=== PATIENT | female | born 1995 | race Caucasian/White ===

== ENCOUNTER 2016-09-04 10:55 | Emergency (ER) | payer BC ==
[~2016-09-04] VITALS: Ht 154.9 cm; Wt 70.5 kg
[2016-09-04 10:57] VITALS: TEMP 36.7; Ht 154.9 cm; Wt 70.5 kg
[2016-09-04] MEDS ORDERED: LORAZEPAM 0.5 MG TAB SL ONE (11:15)
[2016-09-04 11:26] LABS: BASO % 0.2 %; BASO ABS # 0.01 K/uL (0-0.2); COMPLETE YES; EOS % 0.2 %; HEMATOCRIT 40.5 % (37-47); IG% 0.2 %; LYMPH % 21.5 %; LYMPH ABS # 1.27 K/uL (1.2-3.4); MEAN CELL VOLUME 90.8 fL (80-100); MEAN CORPUSCULAR HEMOGLOBIN 31.8 pg (25-34); MEAN CORPUSCULAR HGB CONC 35.1 g/dl (32-36); MEAN PLATELET VOLUME 9.7 fL (7.4-10.4); MONO % 7.1 %; NEUT % 70.8 %; PLATELET COUNT 244 K/uL (130-400); RED BLOOD COUNT 4.46 M/uL (4.2-5.4); WHITE BLOOD COUNT 5.91 K/uL (4.8-10.8)
--- NOTE | 2016-09-04 11:27 | EMERGENCY ROOM VISIT NOTE ---
History Report prepared by Filomena: Jina Elias Under the Supervision of: Dr. Cristina Waters D.O. First contact with patient: 11:06 Chief Complaint: TACHYCARDIA Stated Complaint: PANIC ATTACK, HIGH HEART RATE History of Present Illness The patient is a 21 year old female who presents to the Emergency Room with complaints of a sudden panic attack that occurred this morning prior to arrival. The patient states that this morning she noticed that her heart began racing and developed a knot in her throat. She states that she was feeling very anxious and had difficulty breathing. The patient states that she had a similar event occur a week and a half ago. She states that she went to [place] today and was sent to the emergency department for further evaluation due to her heart rate. The patient states that she does have a lot of added stress, but denies feeling the added stress. She denies any active medical problems. She notes minimal chest wall pain today. The patient denies any abdominal pain. She denies any recent travel.No BCP use The patient reports normal sleeping and eating. She denies any chance of dehydration. The patient denies any caffeine use. . The patient denies any tobacco or alcohol use. The patient notes a family history of hypertension. No family hx of heart disease or PE Source of History: patient Onset: this morning prior to arrival Position: other (global) Quality: other (panic attack) Timing: other (sudden) Modifying Factors (Worsening): other (increased stress) Associated Symptoms: + SOB (difficulty breathing) Note: ASsociated Symptoms: heart racing, knot in throat, feeling anxious Review of Systems See HPI for pertinent positives & negatives. A total of 10 systems reviewed and were otherwise negative. Past Medical & Surgical Medical Problems: (1) Cyst - pilonidal (2) pilonidal resectionand marsupialization Surgical Problems: (1) [place] teeth extracted Family History Cancer Diabetes mellitus Hypertension Kidney disease Kidney stones Social History Smoking Status: Never Smoker Alcohol Use: none Drug Use: none Marital Status: single Housing Status: lives with family Occupation Status: employed, student Current/Historical Medications Scheduled PRN Lorazepam (Ativan), 0.5 MG SL Q6H PRN for Anxiety/Agitation Allergies Coded Allergies: Penicillins (Unverified Allergy, Mild, 09/04/16) Ciprofloxacin (Verified Allergy, Unknown, RASH, 09/04/16) Kiwi (Verified Allergy, Unknown, Itchiness, 09/04/16) Sulfamethoxazole w/Trimethoprim (Verified Allergy, Unknown, RASH, 09/04/16) Head to toe rash after day 9 of med Physical Exam Vital Signs Date Time Temp Pulse Resp B/P Pulse Ox O2 Delivery O2 Flow Rate FiO2 09/04/16 15:05 103 18 112/66 99 09/04/16 14:16 120 20 125/73 99 Room Air 09/04/16 12:22 128 22 130/68 99 Room Air 09/04/16 11:33 126 09/04/16 11:19 100 Room Air 09/04/16 10:57 36.7 167 20 150/89 98 Room Air Physical Exam GENERAL: The patient is a anxious appearing 21 year old female in mild distress. VITALS: Afebrile, hypertensive, tachycardic, normal pulse oximetry on room air. THROAT: No pharyngeal injection, exudates, or tonsillar hypertrophy. Airway is patent. NECK: Supple, nontender, no lymphadenopathy or nuchal rigidity. THORAX : Symmetrical and nontender to palpation without deformity or palpable crepitus. LUNGS : Clear without wheezing, rhonchi, or rales HEART: Tachycardic rate and regular rhythm without murmur, ABDOMEN: Soft and nontender without guarding, rigidity, or rebound tenderness. Bowel sounds are present in all 4 quadrants. There are no palpable masses organomegaly. No CVA tenderness. Femoral pulses are symmetrical EXTREMITIES : Without deformity or point tenderness. There are no palpable cords, edema, or erythema.. NEUROLOGIC: Intact without focal deficits Medical Decision & Procedures ER Provider Diagnostic Interpretation: X-ray results as stated below per interpretation by me and the radiologist: CHEST ONE VIEW PORTABLE HISTORY: tachycardia COMPARISON: None. FINDINGS: The lungs are clear. Cardiac silhouette is normal in size. No pleural effusions. No pneumothorax. IMPRESSION: No acute process. Electronically signed by: Ehsan Shepard M.D. 09/04/2016 11:31 AM Dictated Date/Time: 09/04/2016 11:30 AM Laboratory Results 09/04/16 11:15 Red Blood Count 4.46, Mean Corpuscular Volume 90.8, Mean Corpuscular Hemoglobin 31.8, Mean Corpuscular Hemoglobin Concent 35.1, Mean Platelet Volume 9.7, Neutrophils (%) (Auto) 70.8, Lymphocytes (%) (Auto) 21.5, Monocytes (%) (Auto) 7.1, Eosinophils (%) (Auto) 0.2, Basophils (%) (Auto) 0.2, Neutrophils # (Auto) 4.19, Lymphocytes # (Auto) 1.27, Monocytes # (Auto) 0.42, Eosinophils # (Auto) 0.01, Basophils # (Auto) 0.01 09/04/16 11:15 Test 09/04/16 11:15 White Blood Count 5.91 K/uL (4.8-10.8) Red Blood Count 4.46 M/uL (4.2-5.4) Hemoglobin 14.2 g/dL (12.0-16.0) Hematocrit 40.5 % (37-47) Mean Corpuscular Volume 90.8 fL (80-100) Mean Corpuscular Hemoglobin 31.8 pg (25-34) Mean Corpuscular Hemoglobin Concent 35.1 g/dl (32-36) Platelet Count 244 K/uL (130-400) Mean Platelet Volume 9.7 fL (7.4-10.4) Neutrophils (%) (Auto) 70.8 % Lymphocytes (%) (Auto) 21.5 % Monocytes (%) (Auto) 7.1 % Eosinophils (%) (Auto) 0.2 % Basophils (%) (Auto) 0.2 % Neutrophils # (Auto) 4.19 K/uL (1.4-6.5) Lymphocytes # (Auto) 1.27 K/uL (1.2-3.4) Monocytes # (Auto) 0.42 K/uL (0.11-0.59) Eosinophils # (Auto) 0.01 K/uL (0-0.5) Basophils # (Auto) 0.01 K/uL (0-0.2) RDW Standard Deviation 41.1 fL (36.4-46.3) RDW Coefficient of Variation 12.4 % (11.5-14.5) Immature Granulocyte % (Auto) 0.2 % Immature Granulocyte # (Auto) 0.01 K/uL (0.00-0.02) Anion Gap 10.0 mmol/L (3-11) Est Creatinine Clear Calc Drug Dose 88.8 ml/min Estimated GFR () 105.9 Estimated GFR (Non- 91.4 BUN/Creatinine Ratio 14.6 (10-20) Calcium Level 9.4 mg/dl (8.5-10.1) Magnesium Level 2.0 mg/dl (1.8-2.4) Troponin I < 0.015 ng/ml (0-0.045) Thyroid Stimulating Hormone (TSH) 1.950 uIu/ml (0.300-4.500) Laboratory studies as stated above per my review. Medications Administered Medications (Trade) Dose Ordered Sig/Andra Route Start Time Stop Time Status Last Admin Dose Admin Lorazepam (Ativan Tab) 0.5 mg NOW ONCE SL 09/04/16 11:15 09/04/16 11:17 DC 09/04/16 11:43 0.5 MG Potassium Chloride (Klor-Con M10) 20 meq NOW STAT PO 09/04/16 12:56 09/04/16 12:57 DC 09/04/16 13:10 20 MEQ Lorazepam 0.5 mg 0.5 mg NOW ONCE IV 09/04/16 13:00 09/04/16 13:01 DC 09/04/16 13:10 0.5 MG Sodium Chloride (Nss 1000ml) 1,000 ml @ 999 mls/hr Q1H1M STAT IV 09/04/16 14:03 09/04/16 15:03 DC 09/04/16 14:15 999 MLS/HR ECG Indication: tachycardia Rate (beats per minute): 165 Rhythm: sinus tachycardia Findings: nonspecific-ST abn, other (no acute ST elevations) Comparison ECG Date: no prior available ED Course 1109: Past medical records reviewed. The patient was evaluated in room C8. A complete history and physical examination was performed. She was placed on continuous telemetry and hemodynamic monitoring and remained hemodynamically stable. On examination she appeared anxious and was tachycardic. She initially was treated with sublingual Ativan but continued to be quite anxious and was medicated with an additional 0.5 mg of IV Ativan with improvement of her tachycardia and anxiety. She underwent the above diagnostic workup. Twelve-lead ECG showed a sinus tachycardia without acute changes. A chest x-ray did not show any acute findings; no evidence of pneumonia or heart failure. On CBC she is not anemic. White count is normal. Her potassium is low at 3.4. Glucose is 110. Other electrolytes are normal. Magnesium is normal BUN and Creatinine are normal. TSH is normal and not suggestive of thyroid disease. Troponin is normal and not suggestive of cardiac ischemia. The patient was medicated with 20 mEq of potassium. At this time her symptoms are felt to be secondary to anxiety. She is not felt to have an infection, Acute Coronary syndrome, PE, or significant arrhythmia. She has no evidence of thyroid disease or significant electrolyte abnormality. The patient is being discharged home with instructions on activity and symptomatic care. She's been provided a prescription for a limited number of Ativan to use as needed. She should have close outpatient follow-up with her personal physician for recheck. Return if worsening symptoms or concerns. Patient is comfortable with this treatment plan. 1115: Ordered Ativan Tab 0.5 mg SL. 1149: I reevaluated the patient and she is feeling calmer. 1256: Ordered Potassium Chloride 20 meq PO. 1300: I reevaluated the patient and she is still anxious. Ordered Ativan Inj 0.5 mg IV. 1403: I reevaluated the patient and she is resting comfortably. Ordered Sodium Chloride 1000 ml @ 999 mls/hr IV. 1446: I reevaluated the patient and she is resting comfortably. I discussed the exam findings with her and I discussed the treatment plan. She verbalized complete understanding and agreement. She is ready to go home. Medical Decision EMR, nurse's notes, diagnostic studies personally reviewed Differential diagnosis-see above The chart was completed utilizing [employer] Speech Voice Recognition Software. Grammatical errors, random word insertions, pronoun errors, and incomplete sentences are an occasional consequence of this system due to software limitations, ambient noise, and hardware issues. Any formal questions or concerns about the content, text, or information contained within the body of this dictation should be directly addressed to the physician for clarification. Impression Primary Impression: Anxiety Additional Impression: Tachycardia Scribe Attestation The scribe's documentation has been prepared under my direction and personally reviewed by me in its entirety. I confirm that the note above accurately reflects all work, treatment, procedures, and medical decision making performed by me. Departure Information Dispostion Home / Self-Care Prescriptions Lorazepam (ATIVAN) 0.5 Mg Tab 0.5 MG SL Q6H Y for Anxiety/Agitation, #4 TAB Prov: Cristina Waters D.OPura 09/04/16 Referrals Jv Sanches JrD.O. (PCP) Forms HOME CARE DOCUMENTATION FORM, IMPORTANT VISIT INFORMATION, WORK / SCHOOL INSTRUCTIONS Patient Instructions Anxiety Body Response, My [facility] [place] [employer] Additional Instructions Rest, keep well-hydrated Avoid stimulants 1 Ativan, dissolve on your tongue every 6 hours as needed for anxiety Follow-up with your family doctor for recheck Return if persistent tachycardia, worsening symptoms, chest pain, problems or concerns Problem Qualifiers
--- NOTE | 2016-09-04 11:32 | DIAGNOSTIC IMAGING REPORT ---
CHEST ONE VIEW PORTABLE HISTORY: tachycardia COMPARISON: None. FINDINGS: The lungs are clear. Cardiac silhouette is normal in size. No pleural effusions. No pneumothorax. IMPRESSION: No acute process. Electronically signed by: Ehsan Shepard M.D. 09/04/2016 11:31 AM Dictated Date/Time: 09/04/2016 11:30 AM
[2016-09-04 11:40] LABS: BUN/CREATININE RATIO 14.6 (10-20); CALCIUM 9.4 mg/dl (8.5-10.1); CREATININE 0.9 mg/dl (0.60-1.20); POTASSIUM 3.4 mmol/L (3.5-5.1)
[2016-09-04] MEDS ORDERED: POTASSIUM CHLORIDE 10 MEQ TABCR PO STA (12:56)
[2016-09-04] MEDS ORDERED: LORAZEPAM 2 MG/ML 1 ML VIAL IV ONE (13:00)
[2016-09-04] MEDS ORDERED: SODIUM CHLORIDE 0.9% 1000ML 1,000 ML IV STA (14:03)
[2016-09-04] MEDS ORDERED: LORA-741 SL (14:44)
[2016-09-04 15:05] VITALS: BP 112/66; PULSE 103; O2SAT 99
== END 2016-09-04 15:07 | disposition home or self-care (01) ==
LOC: C.EDB 10:57 → C.EDC 15:07
DX: F41.9 Anxiety disorder, unspecified (principal); R00.0 Tachycardia, unspecified; Z84.1 Family history of disorders of kidney and ureter; Z83.3 Family history of diabetes mellitus

== ENCOUNTER → 2017-03-21 | Outpatient (CLI) | payer BC | END | disposition home or self-care (01) | LOC: C.PAPS 11:48 | PROVIDERS: ATTEND Physician Assistant | DX: Z01.419 Encounter for gynecological examination (general) (routine) without abnormal findings (principal) ==

== ENCOUNTER 2017-10-19 19:05 | Emergency (ER) | payer BC ==
[~2017-10-19] VITALS: Ht 154.9 cm; Wt 73.3 kg
[2017-10-19 19:08] VITALS: TEMP 36.6; Ht 154.9 cm; Wt 73.3 kg
[2017-10-19] MEDS ORDERED: ONDANSETRON INJ 2 MG/ML 2 ML VIAL IV STA (19:22)
[2017-10-19] MEDS ORDERED: SODIUM CHLORIDE 0.9% 1000ML 1,000 ML IV STA (19:22)
[2017-10-19] MEDS ORDERED: LACT1CAP6 PO (19:38)
[2017-10-19] MEDS ORDERED: ESCI1TAB9 PO (19:38)
[2017-10-19 19:52] LABS: EOS % 2.3 %; EOS ABS # 0.11 K/uL (0-0.5); HEMATOCRIT 41.7 % (37-47); HEMOGLOBIN 14.7 g/dL (12.0-16.0); IG# 0.01 K/uL (0.00-0.02); LYMPH % 7.2 %; LYMPH ABS # 0.34 K/uL (1.2-3.4); MEAN CELL VOLUME 90.3 fL (80-100); MEAN CORPUSCULAR HEMOGLOBIN 31.8 pg (25-34); MEAN CORPUSCULAR HGB CONC 35.3 g/dl (32-36); MEAN PLATELET VOLUME 9.6 fL (7.4-10.4); MONO % 10.8 %; MONO ABS # 0.51 K/uL (0.11-0.59); NEUT % 79.5 %; NEUT ABS # 3.77 K/uL (1.4-6.5); PLATELET COUNT 212 K/uL (130-400); RED CELL DISTRIBUTION WIDTH CV 12.3 % (11.5-14.5); RED CELL DISTRIBUTION WIDTH SD 40.8 fL (36.4-46.3); WHITE BLOOD COUNT 4.74 K/uL (4.8-10.8)
[2017-10-19 20:06] LABS: CALCIUM 8.4 mg/dl (8.5-10.1); CREATININE 0.79 mg/dl (0.60-1.20); POTASSIUM 3.8 mmol/L (3.5-5.1)
[2017-10-19 20:22] VITALS: BP 105/58; PULSE 60; O2SAT 100
[2017-10-19] MEDS ORDERED: ONDA4TAB10 SL (20:22)
[2017-10-19] MEDS ORDERED: ONDANSETRON HOME PACK 4MG OD TAB PO ONE (20:30)
--- NOTE | 2017-10-20 01:28 | EMERGENCY ROOM VISIT NOTE ---
History Report prepared by Filomena: Pro Napier Under the Supervision of: Dr. Alex Nj M.D. First contact with patient: 19:12 Chief Complaint: DIARRHEA Stated Complaint: DIARRHEA, VOMITING, NAUSEA, STAOMACH CRAMPING History of Present Illness The patient is a 22 year old female who presents to the Emergency Room with complaints of vomiting and persistent, severe watery diarrhea beginning this morning. 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 The patient denies seeing blood in her diarrhea. She states that she consumed [place] lettuce 4 days ago, but notes that she was told that the lettuce was not part of the contaminated E. Coli batch from [facility]. She denies any foreign travel, recent antibiotic use, or exposure to sick individuals. Source of History: patient Onset: Earlier Today Position: abdomen Symptom Intensity: severe Timing: other (Persistent ) Modifying Factors (Worsening): other (None ) Modifying Factors (Relieving): other (None ) Associated Symptoms: + nausea, + vomiting Note: Denies: Bloody diarrhea. Review of Systems See HPI for pertinent positives & negatives. A total of 10 systems reviewed and were otherwise negative. Past Medical & Surgical Medical Problems: (1) Cyst - pilonidal (2) pilonidal resectionand marsupialization Surgical Problems: (1) [place] teeth extracted Family History Cancer Diabetes mellitus Hypertension Kidney disease Kidney stones Social History Smoking Status: Never Smoker Alcohol Use: none Drug Use: none Marital Status: single Housing Status: lives with family Occupation Status: employed, student Current/Historical Medications Scheduled Escitalopram Oxalate (Lexapro), 10 MG PO DAILY Lactobacillus (Probiotic), 1 CAP PO DAILY Ondasetron Odt (Zofran Odt), 4 MG SL Q6H Allergies Coded Allergies: Ciprofloxacin (Verified Allergy, Severe, HIVES, 10/19/17) Penicillins (Verified Allergy, Severe, HIVES, 10/19/17) Sulfamethoxazole w/Trimethoprim (Verified Allergy, Severe, HIVES, 10/19/17) Kiwi (Verified Allergy, Intermediate, ITCHY THROAT, WATERY EYES, 10/19/17) Physical Exam Vital Signs Date Time Temp Pulse Resp B/P (MAP) Pulse Ox O2 Delivery O2 Flow Rate FiO2 10/19/17 20:22 60 18 105/58 100 Room Air 10/19/17 19:08 36.6 120 16 147/69 100 Room Air Physical Exam Constitutional: Vital signs reviewed. Eyes: Pupils are equal round reactive to light. Conjunctiva are noninjected. ENT: Pharynx is clear without erythema or exudate. Mucous membranes are dry. Neck supple without meningeal signs. Respiratory: Clear to auscultation bilaterally. Breath sounds are equal bilaterally. Cardiovascular: Regular rate and rhythm. No rubs or gallops. GI: Soft, nondistended and nontender. Bowel sounds are present. Musculoskeletal: No peripheral edema. No lower extremity tenderness. Integumentary: No cyanosis. Neurological: The patient is awake and alert. No focal deficits. Psychiatric: Normal affect. Medical Decision & Procedures Laboratory Results 10/19/17 19:32 Red Blood Count 4.62, Mean Corpuscular Volume 90.3, Mean Corpuscular Hemoglobin 31.8, Mean Corpuscular Hemoglobin Concent 35.3, Mean Platelet Volume 9.6, Neutrophils (%) (Auto) 79.5, Lymphocytes (%) (Auto) 7.2, Monocytes (%) (Auto) 10.8, Eosinophils (%) (Auto) 2.3, Basophils (%) (Auto) 0.0, Neutrophils # (Auto ) 3.77, Lymphocytes # (Auto) 0.34, Monocytes # (Auto) 0.51, Eosinophils # (Auto ) 0.11, Basophils # (Auto) 0.00 10/19/17 19:32 Test 10/19/17 19:32 White Blood Count 4.74 K/uL (4.8-10.8) Red Blood Count 4.62 M/uL (4.2-5.4) Hemoglobin 14.7 g/dL (12.0-16.0) Hematocrit 41.7 % (37-47) Mean Corpuscular Volume 90.3 fL (80-100) Mean Corpuscular Hemoglobin 31.8 pg (25-34) Mean Corpuscular Hemoglobin Concent 35.3 g/dl (32-36) Platelet Count 212 K/uL (130-400) Mean Platelet Volume 9.6 fL (7.4-10.4) Neutrophils (%) (Auto) 79.5 % Lymphocytes (%) (Auto) 7.2 % Monocytes (%) (Auto) 10.8 % Eosinophils (%) (Auto) 2.3 % Basophils (%) (Auto) 0.0 % Neutrophils # (Auto) 3.77 K/uL (1.4-6.5) Lymphocytes # (Auto) 0.34 K/uL (1.2-3.4) Monocytes # (Auto) 0.51 K/uL (0.11-0.59) Eosinophils # (Auto) 0.11 K/uL (0-0.5) Basophils # (Auto) 0.00 K/uL (0-0.2) RDW Standard Deviation 40.8 fL (36.4-46.3) RDW Coefficient of Variation 12.3 % (11.5-14.5) Immature Granulocyte % (Auto) 0.2 % Immature Granulocyte # (Auto) 0.01 K/uL (0.00-0.02) Anion Gap 9.0 mmol/L (3-11) Est Creatinine Clear Calc Drug Dose 102.2 ml/min Estimated GFR () 123.2 Estimated GFR (Non- 106.3 BUN/Creatinine Ratio 14.9 (10-20) Calcium Level 8.4 mg/dl (8.5-10.1) Date/Time Source Procedure Growth Status 10/19/17 19:30 Stool C.difficile Toxin B Gene (PCR) - Final No C. difficile toxin B gene detected Complete Laboratory results as reviewed by me. Medications Administered Medications (Trade) Dose Ordered Sig/Andra Route Start Time Stop Time Status Last Admin Dose Admin Sodium Chloride 1,000 ml @ 999 mls/hr Q1H1M STAT IV 10/19/17 19:22 10/19/17 20:22 DC 10/19/17 19:38 999 MLS/HR Ondansetron HCl (Zofran Inj) 4 mg NOW STAT IV 10/19/17 19:22 10/19/17 19:23 DC 10/19/17 19:38 4 MG Ondansetron HCl (ZOFRAN ODT 4MG Home Pack) 1 homepack UD ONCE PO 10/19/17 20:30 10/19/17 20:31 DC 10/19/17 20:29 1 HOMEPACK ED Course 1911: The patient was evaluated in room C9. A complete history and physical exam was performed. 1921: Ordered Zofran Inj 4mg IV and Sodium Chloride 1000 ml @ 999 mls/hr IV. 2020: I reevaluated the patient. She states that she is feeling much better. I will call her with her C. Diff result when it returns. 2022: Upon reevaluation, the patient appeared to have improvement of her symptoms. I discussed raul's findings with her. She verbalized agreement of the treatment plan. She was discharged home. Medical Decision This is a 22-year-old female who presents with vomiting and diarrhea. Differential diagnosis includes gastroenteritis, foodborne illness, E. coli, dehydration, electrolyte abnormality. I did perform a limited focused review of portions of the patient's old chart on the electronic medical record. The patient has had no recent pertinent visits to this hospital. I did evaluate the patient as noted above. IV access was established. I did treat her with IV Zofran and normal saline IV. I did order stool cultures. C. difficile antigen testing was negative. I did order and review the patient's blood work as noted in the electronic medical record. Her lab work is unremarkable. I did reassess the patient. She is feeling much better. I did discuss the test results with the patient. She was discharged with a prescription for Zofran. She was advised to follow-up with her doctor. Medication Reconcilliation Current Medication List: was personally reviewed by me Blood Pressure Screening Patient's blood pressure: Elevated blood pressure The patient is hypertensive. Impression Primary Impression: Vomiting Additional Impression: Diarrhea Scribe Attestation The scribe's documentation has been prepared under my direct and personally reviewed by me in its entirety. I confirm that the note above accurately reflects all work, treatment, procedures, and medical decision making performed by me. Departure Information Dispostion Home / Self-Care Prescriptions Ondasetron Odt (ZOFRAN ODT) 4 Mg Tab 4 MG SL Q6H for Nausea, #6 TAB Prov: Alex Nj M.D. 10/19/17 Referrals Jv Sanches Jr,D.O. (PCP) Forms HOME CARE DOCUMENTATION FORM, IMPORTANT VISIT INFORMATION, WORK / SCHOOL INSTRUCTIONS Patient Instructions My [facility], Vomit Diarrhea Self Care Additional Instructions You have been examined and treated today on an emergency basis only. This is not a substitute for, or an effort to provide, complete comprehensive medical care. It is impossible to recognize and treat all injuries or illnesses in a single emergency department visit. It is therefore important that you follow up closely with your physician. Call as soon as possible for an appointment. Return for worsening symptoms or if you develop fever, abdominal pain, rectal bleeding or any other concerning symptoms. Problem Qualifiers Primary Impression: Vomiting Vomiting type: unspecified Vomiting Intractability: non-intractable Nausea presence: with nausea Qualified Codes: R11.2 - Nausea with vomiting, unspecified Additional Impression: Diarrhea Diarrhea type: unspecified type Qualified Codes: R19.7 - Diarrhea, unspecified
== END 2017-10-19 20:31 | disposition home or self-care (01) ==
LOC: C.EDB 19:07 → C.EDC 20:31
DX: R11.2 Nausea with vomiting, unspecified (principal); R19.7 Diarrhea, unspecified; R10.9 Unspecified abdominal pain

== ENCOUNTER 2019-11-19 05:32 | Inpatient (IN) ==
--- NOTE | 2019-11-16 13:05 | Communication Note ---
Date of Service: November 16, 2019 Travel assessment/history reviewed - low risk at this time - will be reviewed the morning of surgery. No covid prescreen test done.
--- NOTE | 2019-11-18 17:52 | History and Physical Report ---
DATE OF ADMISSION: 11/19/2019 REASON FOR ADMISSION: Scheduled primary section for breech. BRIEF HISTORY: Mary is a 24-year-old and will be admitted at 39 weeks 6 days gestational age for scheduled primary section for breech presentation. The patient's has been complicated by hypothyroidism, Rh negative and breech presentation. The patient has been previously counseled on delivery via versus reattempted ECV. The patient has previously had a failed version. The patient has opted to proceed with primary section. COURSE: The patient presented for care at approximately 7 weeks' gestational age. She has been normotensive throughout. She has had negative proteinuria and negative glucosuria. has been uncomplicated to date. OBSTETRICAL HISTORY: The patient is a G1. GYNECOLOGIC HISTORY: Noncontributory to her current admission. PAST MEDICAL HISTORY: Significant for: 1. Hypothyroidism. 2. Iron-deficiency anemia. 3. Anxiety. PAST SURGICAL HISTORY: Has been significant for wisdom tooth extraction. CURRENT MEDICATIONS: Include: 1. vitamins. 2. Synthroid. 3. Colace. 4. Iron. 5. Levothyroxine 75 mcg daily. ALLERGIES: MANY DRUG ALLERGIES, please see EMR. PHYSICAL EXAMINATION TODAY: VITAL SIGNS: Blood pressure 128/80. GENERAL: The patient is well appearing in no acute distress, alert and oriented x3. HEART: Showed regular rate and rhythm. LUNGS: Clear to auscultation bilaterally. ABDOMEN: Soft, nontender, nondistended. Fundal height was measured at 40. heart rate of 145 was noted. Fetus was noted to have continued breech presentation. EXTREMITIES: Unremarkable. ASSESSMENT AND PLAN: Mary is a 24-year-old 1, para 0, with planned primary section for breech presentation. The patient had a failed external cephalic version. 1. Fetus: Heart rate reassuring today. We will have NST prior to . 2. Delivery: We will proceed with a primary section for breech presentation. Consents were reviewed and signed in clinic today. All questions were answered to patient's satisfaction. We discussed the risks in detail and reviewed postoperative precautions. 3. Vitals: Within normal limits. We will continue to monitor. 4. hemorrhage risk considered moderate risk for planned section. We will type and screen. 5. Hypothyroidism: Continue home medications.
[2019-11-19] MEDS ORDERED: CLINDAMYCIN 900 MG in DEXTROSE 5% 50 ML IV ONE (05:41)
[2019-11-19] MEDS ORDERED: CITRIC ACID/SODIUM CITRATE 15 ML UDC PO SCH (06:00)
[2019-11-19 06:01] LABS: Basophils # (auto) 0.03 K/uL (0-0.2); Basophils % (auto) 0.2 %; Eosinophils # (auto) 0.14 K/uL (0-0.5); Eosinophils % (auto) 1.2 %; Hematocrit (blood only) 38.5 % (37-47); Hemoglobin 13.1 g/dL (12.0-16.0); Immature Granulocytes # (auto) 0.19 K/uL (0.00-0.02); Immature Granulocytes % (auto) 1.6 %; Lymphocytes # (auto) 2.25 K/uL (1.2-3.4); Lymphocytes % (auto) 18.6 %; Mean Corpuscular Volume 93.9 fL (80-100); Mean Platelet Volume 9.6 fL (7.4-10.4); Monocytes # (auto) 0.95 K/uL (0.11-0.59); Monocytes % (auto) 7.8 %; Neutrophils # (auto) 8.56 K/uL (1.4-6.5); Neutrophils % (auto) 70.6 %; Platelet Count 288 K/uL (130-400); RDW Coefficient of Variation 14.2 % (11.5-14.5); RDW Standard Deviation 48.8 fL (36.4-46.3); White Blood Count 12.12 K/uL (4.8-10.8)
[2019-11-19] MEDS ORDERED: LACTATED RINGER'S 1,000 ML IV SCH ×2 (06:43→08:45)
[2019-11-19] MEDS ORDERED: SODIUM CHLORIDE 0.9% 250 ML IV PRN (06:44)
[2019-11-19] MEDS: LEVOTHYROXINE SODIUM 75 MCG TABLET PO SCH (06:51)
--- NOTE | 2019-11-19 07:18 | Anesthesiology Consultation ---
Date of Service November 19, 2019 Assessment & Plan (1) Encounter for pre-operative examination: Chart Review Chart Review: Acceptable Risk for Surgery and Patient NOT seen in Pre Admission Testing Consults Requested none ASA ASA2 Proposed Anesthesia Anesthesia Type: Spinal Risk / Benefits Reviewed With: PT / POA / Parent / Guardian, Accepts Plan and Informed Consent Obtained History Surgery Operation Date: 11/19/19 07:30 Proposed Procedures p Section - Ever Pickens MD Height/Weight Height: 5 ft 1 in Weight: 98.43 kg Allergies Allergy/AdvReac Type Severity Reaction Status Date / Time apple Allergy Severe Swelling Verified 11/18/19 13:49 of Lip/Tongue/Throat Bactrim Allergy Severe HIVES Verified 10/19/17 19:37 Cipro Allergy Severe HIVES Verified 10/19/17 19:37 ciprofloxacin Allergy Intermediate HIVES Verified 11/18/19 13:49 kiwi Allergy Intermediate ITCHY Verified 11/18/19 13:49 THROAT, WATERY EYES Penicillins Allergy Intermediate HIVES Verified 11/18/19 13:49 sulfamethoxazole Allergy Intermediate HIVES Verified 11/18/19 13:49 trimethoprim Allergy Intermediate HIVES Verified 11/18/19 13:49 Medications Home Medications Medication Instructions Recorded Confirmed Last Taken cetirizine 10 mg tablet 10 mg PO QAM 04/07/19 11/19/19 11/18/19 08:00 vit-iron fum-folic ac 1 tab PO DAILY 08/15/19 11/19/19 11/18/19 08:00 levothyroxine 75 mcg tablet 75 mcg PO DAILY #90 tab 09/20/19 11/19/19 11/19/19 04:30 docusate sodium [Stool Softener] 100 mg PO QAM 11/11/19 11/19/19 11/18/19 08:00 ferrous sulfate 324 mg PO QAM 11/11/19 11/19/19 11/18/19 08:00 Active Medications Generic Name Dose Route Start Last Admin Trade Name Freq PRN Reason Stop Dose Admin Lactated Ringer's 1,000 mls @ 125 mls/hr 11/19/19 06:43 11/19/19 06:02 Lr IV 12/19/19 06:42 999 mls/hr .Q8H ANSON Administration Levothyroxine Sodium 75 mcg 11/19/19 06:30 11/19/19 06:51 Synthroid PO 12/19/19 06:29 Not Given DAILYBB ANSON NPO Date Last Intake of Fluids: 11/18/19 Time Last Intake of Fluids: 21:00 Date Last Intake of Solids: 11/18/19 Time Last Intake of Solids: 20:00 Past Medical History Medical History Anxiety (Acute) Hypothyroidism Iron deficiency Seasonal allergies Temporomandibular joint disorder Exercise / Class Metabolic Activity II 4-5 Yardwork/Stairs/Walk up hill Past Family History Family History Father Diabetes Hypertension Hyperlipidemia Left nephrolithiasis Grandfather (Maternal) Cardiac disorder Grandmother (Maternal) Gallbladder disease Aunt Gallbladder disease Mother Multiple myeloma Denies family history of Colon cancer Ovarian cancer Breast cancer Past Surgical History Surgical History History of incision and drainage INCISION AND DRAINAGE OF PILONIDAL CYST;X3 History of wisdom tooth extraction Past Anesthesia History No Hx of Anesthesia Complications History of PONV No Hx of PONV Social History Smoking Status: Never smoker Do You Dip or Chew Tobacco: No Hx Alcohol Use: No Hx Substance Use: No substance use type: does not use Review of Systems Negative for chest pain or shortness of breath. Patient denies active symptoms of GERD. Patient denies history of abnormal bleeding or bleeding disorder. Patient denies active use of anticoagulants other than low dose aspirin. Patient denies numbness, tingling or weakness in lower extremities. Physical Exam Vital Signs Last Vital Signs Temp 36.9 C 11/19/19 05:46 Pulse 86 11/19/19 06:08 Resp 18 11/19/19 05:46 BP 118/81 11/19/19 06:08 Constitutional not obese (Gravid uterus) ENMT Mouth: no TMJ abnormality and oral opening not small Thyromental Distance: > or= 3.5 Finger Breadths Mallampati Class: II Neck normal visual inspection; neck extension not limited Respiratory normal respiratory effort Auscultation: lungs clear to auscultation bilaterally Cardiovascular Rate/Rhythm: regular rate and regular rhythm Heart Sounds: no murmur Neurologic moves all extremities Motor/Sensory: no sensory deficit Psychiatric Orientation: alert and oriented x 3 Testing Laboratory Results 11/19/19 05:49
--- NOTE | 2019-11-19 07:23 | History & Physical Bridge Note ---
Date of Service November 19, 2019 History & Physical Bridge Note I have examined the patient, reviewed the History & Physical and in the interval since the performance of the History & Physical I have noted the following changes of clinical significance: no changes noted
[2019-11-19] MEDS ORDERED: MoRPHine SULFATE PF 1 MG/ML 10 ML AMP/VIAL ONE (07:29)
[2019-11-19] MEDS ORDERED: fentaNYL citrate 100 MCG/2 ML VIAL ONE (07:29)
[2019-11-19] MEDS ORDERED: CEFAZOLIN 3,000 MG in DEXTROSE 5% 50 ML IV STA (07:34)
[2019-11-19] MEDS ORDERED: OXYTOCIN 10 UNITS/ML VIAL ONE ×4 (07:58→08:32)
[2019-11-19] MEDS ORDERED: KETOROLAC 30 MG/ML VIAL ONE (08:27)
[2019-11-19] MEDS ORDERED: PHENYLEPHRINE 100MCG/ML 5ML SYR ONE (08:28)
[2019-11-19] MEDS ORDERED: SENNA 8.6 MG TAB PO PRN (08:33)
[2019-11-19] MEDS ORDERED: MEPERIDINE HCL 50 MG/ML CARP IV PRN (08:33)
[2019-11-19] MEDS ORDERED: SUPERCREAM 0.870% 15 GM JAR EXT PRN (08:33)
[2019-11-19] MEDS ORDERED: KETOROLAC 30 MG/ML VIAL IV PRN ×2 (08:33→08:37)
[2019-11-19] MEDS ORDERED: BENZOCAINE 20% AER SPR 82.5 GM CAN EXT PRN (08:33)
[2019-11-19] MEDS ORDERED: HYDROCORTISONE ACETATE 25 MG SUPP PR PRN (08:33)
[2019-11-19] MEDS ORDERED: HYDROmorphone INJ 0.5 MG/0.5 ML SYR IV PRN (08:37)
[2019-11-19] MEDS ORDERED: ONDANSETRON INJ 2 MG/ML 2 ML VIAL IV PRN (08:37)
[2019-11-19] MEDS ORDERED: MoRPHine SULFATE PF 1 MG/ML 10 ML AMP/VIAL INT SPINAL ONE (08:37)
[2019-11-19] MEDS ORDERED: NALOXONE HCL 0.4 MG/1 ML VIAL/CARP IV PRN (08:37)
[2019-11-19] MEDS ORDERED: LACTATED RINGER'S 500 ML IV PRN (08:37)
[2019-11-19] MEDS ORDERED: ePHEDrine sulfate 50 MG/ML AMP IV PRN (08:37)
[2019-11-19] MEDS ORDERED: DiphenhydrAMINE HCL 50 MG/ML VIAL IV PRN (08:37)
[2019-11-19] MEDS ORDERED: NALOXONE HCL 0.08 MG in SYRINGE 1.8 ML IV PRN (08:37)
[2019-11-19] MEDS ORDERED: ACETAMINOPHEN 1000 MG/100 ML IV IV PRN (08:37)
[2019-11-19] MEDS ORDERED: NALOXONE HCL 1 MG in SODIUM CHLORIDE 0.9% 1000ML 1,000 ML IV PRN (08:37)
[2019-11-19] MEDS ORDERED: NALBUPHINE HCL INJ 10 MG/ML AMP IV PRN (08:37)
--- NOTE | 2019-11-19 08:44 | Post Operative Brief Note ---
PG Immediate Post Op with CF Date of Surgery November 19, 2019 Pre & Post Diagnosis Operation Date: 11/19/19 07:30 Pre-Op Diagnosis: Term; Breech Post-Op Diagnosis: Same; Delivery of a live male child at 0810 I identified the patient and participated in the time-out.: Yes Procedure Operation Date: 11/19/19 07:30 Actual Procedures p Section - Ever Pickens MD Surgeon Ever Pickens MD Inker And Opaquer Dr Karlos Moe Estimated Blood Loss 500 Findings Consistent with Post-Op Diagnosis Specimens Specimen Description: A. Placenta-hold B. Cord Blood Drains Gutierrez Catheter
[2019-11-19] MEDS ORDERED: DC INTRASPINAL MORPHINE SCH (08:45)
[2019-11-19] MEDS ORDERED: NO NARCOTICS OR SEDATIVES SCH (08:45)
[2019-11-19] MEDS ORDERED: SODIUM CHLORIDE 0.9% 1000ML 1,000 ML IV SCH (08:45)
--- NOTE | 2019-11-19 09:11 | Anesthesiology Progress Note ---
Date of Service November 19, 2019 Anesthesia Post Procedure Vital Signs Vital Signs: Temp Pulse Resp BP Pulse Ox 11/19/19 09:07 82 99 11/19/19 09:06 85 107/77 11/19/19 09:02 68 99 11/19/19 08:57 68 98 11/19/19 08:56 76 111/56 L 11/19/19 06:08 86 118/81 11/19/19 05:46 36.9 C 86 18 118/81 Transfer of Care Handoff Completed per policy Notes Mental Status: alert / awake / arousable and participated in evaluation Nausea / Vomiting: adequately controlled Pain: adequately controlled Airway Patency, RR, SpO2: stable & adequate BP & HR: stable & adequate Hydration State: stable & adequate Neuraxial Anesthesia: was administered and sensory block is resolving Anesthetic Complications: no major complications apparent and Pt Satisfied with anesthetic care
[2019-11-19] MEDS: OXYTOCIN 20 UNITS in LACTATED RINGER'S 1,000 ML IV SCH ×2 (12:07→20:32)
--- NOTE | 2019-11-19 15:22 | Operative Report (OR) ---
DATE OF OPERATION: 11/19/2019 PROCEDURE: Primary section. PREOPERATIVE DIAGNOSES: 1. Term at 39+ weeks gestational age. 2. Persistent breech presentation. 3. Failed external cephalic version. POSTOPERATIVE DIAGNOSES: 1. Term at 39+ weeks gestational age. 2. Persistent breech presentation. 3. Failed external cephalic version. 4. Status post procedure. SURGEON: Dr. Ever Pickens. ESTIMATED BLOOD LOSS: 500 mL. DRAINS: Gutierrez catheter. FLUIDS: Continuous lactated ringer. URINE OUTPUT: Per Gutierrez catheter. COMPLICATIONS: None. FINDINGS: There was noted to be a viable with weight pending, Apgars of 9 and 10 at 1 and 5 minutes respectively. INDICATIONS: The patient is a 24-year-old G1, P0, admitted at 39 weeks 6 days gestational age for planned primary section for persistent breech with failed ECV. Consents were reviewed and signed in clinic and the patient was scanned to document persistent breech presentation prior to proceeding to the OR. DESCRIPTION OF PROCEDURE: The patient was taken to the Operating Room after consents were ensured. Spinal anesthesia was obtained without difficulty. The patient was then prepped and draped in normal sterile fashion. Preprocedure timeout was performed. A Pfannenstiel skin incision was made with a knife. This was carried down to underlying fascia with the Bovie and blunt dissection. The fascia was nicked at the midline with a knife. The fascia was then extended laterally in each direction with pickups and Cline scissors. The superior aspect of the fascia was grasped with Kochers x2, elevated off the underlying rectus muscle using blunt dissection. The inferior aspect of the fascia was grasped with Kochers x2 and elevated off the underlying rectus muscle using blunt dissection. The midline was then entered bluntly and placed on stretch to provide adequate room for delivery. A bladder blade was inserted and a bladder flap was created in normal fashion. A low transverse uterine incision was then made with a knife and was extended laterally to provide space for delivery. The was noted to be in ingrid breech presentation and the buttocks were then brought through the hysterotomy. The internal rotation of the hips allowed for delivery of both legs. This was continued to the level of the axilla and then internal rotation of both arms allowed for delivery of the arms and shoulders. Head was then delivered without difficulty. was noted to be vigorous soon after delivery and a 30-second delayed cord clamping was initiated per the patient's request. The cord was then double clamped and cut. was handed off to the awaiting nursery staff. Cord blood was then obtained. Attention was then turned to deliver the placenta, which was delivered intact, 3-vessel cord with gentle cord traction and fundal massage. The uterus was then exteriorized. Several passes were made to remove any remaining membranes. The uterus was wrapped in wet lap and the hysterotomy was closed with 0 Vicryl continuous running locked suture. A second imbricating layer was then performed. The posterior cul-de-sac was cleaned of clots and debris. The uterus was returned to maternal abdomen and the hysterotomy was noted to be continued hemostasis. The right and left pericolic gutters were cleaned of clots and debris and the fascia and subcutaneous layers were inspected and noted to be hemostatic. The fascia was then closed with 0 Vicryl in continuous running stitch. The subcutaneous layers were reapproximated with 2-0 plain. Skin was reapproximated with a 3-0 Vicryl on a Vladimir needle. Needle, sponge and instrument counts were correct at the completion of the case with mother and stable in the immediate post delivery period. The patient received 3 grams of Ancef prior to incision. I attest to the content of the Intraoperative Record and any orders documented therein. Any exceptions are noted below. NICOLASAD
[2019-11-19] MEDS ORDERED: ACETAMINOPHEN 500 MG TAB PO PRN (19:42)
[2019-11-20] MEDS ORDERED: PROMETHAZINE HCL 25 MG in SODIUM CHLORIDE 0.9% 50 ML IV PRN (02:37)
[2019-11-20] MEDS ORDERED: ONDANSETRON INJ 2 MG/ML 2 ML VIAL IV PRN (02:37)
[2019-11-20] MEDS ORDERED: DiphenhydrAMINE HCL 50 MG/ML VIAL IV PRN (02:37)
[2019-11-20] MEDS ORDERED: OXYCODONE/ACETAMINOPHEN 5mg/325mg TAB PO PRN (02:37)
[2019-11-20] MEDS: OXYCODONE HCL IR 5 MG TAB (IMMEDIATE RELEASE) PO PRN ×5 (03:10→21:04)
--- NOTE | 2019-11-20 06:04 | Obstetrical Progress Note ---
Date of Service November 20, 2019 Assessment & Plan Admission and Anticipated Discharge Date Admission Date: November 19, 2019 24 yo G1 s/p pC/S @ 39.6 complicated by hypothyroidism and breech presentation. - POD# 1 - GBS -, Blood Type O-, baby blood type O- - Feels well today. Eating well, voiding well, ambulating well. - Pain well controlled. - Routine post operative care - After discharge will have [address] Pickens. Supervising Physician Co-Signing Physician Notes Patient seen and evaluated and agree with the above findings and plan. Doing well. Routine care Subjective Doing well this morning she is voiding, eating a regular diet without difficulty. Her bleeding is described as a, "heavy period". She is and this is going, "well". And her pain is a 1-2/10. Babies name is Denisse. She had no questions for me this morning. Review of Systems Review of Systems: Denies fever, chills, sweats Denies shortness of breath, difficulty breathing, chest pain, palpitations, chest pressure. Denies breast pain. Denies dysuria. Denies headache. Physical Exam Physical Exam: General: Alert, oriented. No acute distress. Cardiac: Regular rate and rhythm, no murmurs/rubs/gallops. Respiratory: Clear to auscultation anterior and posteriorly, no wheezes/rales/rhonchi. No increased work of breathing. Symmetrical chest rise. No respiratory distress. Abdomen: Soft, nontender, nondistended. Bowel sounds present. Uterus: Uterine fundus firm, palpable 1 cm below umbilicus. Lower Extremities: No lower extremity edema or swelling. No deep calf pain. Gillian's negative bilaterally. surgical incision intact, clean, dry. No warmth, erythema, discharge, or dehiscence. Results & Data ([facility]) Vital Signs (Past 12 Hours) Vital Signs Temp Pulse Resp BP Pulse Ox 11/20/19 03:35 36.9 C 71 18 105/70 99 11/20/19 02:25 18 97 11/20/19 01:20 16 96 11/20/19 00:35 16 96 11/19/19 23:05 36.9 C 77 18 100/56 L 97 11/19/19 22:20 18 96 11/19/19 21:25 18 96 11/19/19 20:40 18 97 05/29/20 19:35 36.8 C 64 18 96/63 L 96 11/19/19 18:50 20 100 Resident Activity Tracking Resident Involvement: Resident Care Provided Care Provided: OB Delivery
[2019-11-20] MEDS: LEVOTHYROXINE SODIUM 75 MCG TABLET PO SCH (06:14)
[2019-11-20 07:38] LABS: Basophils # (auto) 0.02 K/uL (0-0.2); Basophils % (auto) 0.1 %; Eosinophils # (auto) 0.11 K/uL (0-0.5); Eosinophils % (auto) 0.8 %; Hematocrit (blood only) 35.5 % (37-47); Hemoglobin 12.1 g/dL (12.0-16.0); Immature Granulocytes # (auto) 0.14 K/uL (0.00-0.02); Lymphocytes # (auto) 1.61 K/uL (1.2-3.4); Lymphocytes % (auto) 11.9 %; Mean Corpuscular Hemoglobin 32.2 pg (25-34); Mean Corpuscular Hgb Conc 34.1 g/dL (32-36); Mean Corpuscular Volume 94.4 fL (80-100); Mean Platelet Volume 9.7 fL (7.4-10.4); Monocytes # (auto) 0.82 K/uL (0.11-0.59); Monocytes % (auto) 6.1 %; Neutrophils # (auto) 10.85 K/uL (1.4-6.5); Neutrophils % (auto) 80.1 %; Platelet Count 280 K/uL (130-400); RDW Coefficient of Variation 14.1 % (11.5-14.5); Red Blood Count 3.76 M/uL (4.2-5.4); White Blood Count 13.55 K/uL (4.8-10.8)
[2019-11-20] MEDS: PRENATAL VITAMIN 1 TAB PO SCH (08:38)
[2019-11-20] MEDS: FERROUS SULFATE 325 MG TAB PO SCH (08:39)
[2019-11-20] MEDS: DOCUSATE SODIUM 100 MG CAP PO SCH ×2 (09:12→21:04)
[2019-11-20] MEDS: SIMETHICONE 80 MG CHEW PO PRN ×3 (09:12→21:04)
[2019-11-20] MEDS: IBUPROFEN 600 MG TAB PO PRN ×3 (12:41→21:04)
[2019-11-21] MEDS: IBUPROFEN 600 MG TAB PO PRN ×3 (01:12→11:52)
[2019-11-21] MEDS: OXYCODONE HCL IR 5 MG TAB (IMMEDIATE RELEASE) PO PRN ×3 (01:12→11:52)
[2019-11-21 06:07] LABS: Hematocrit (blood only) 31.8 % (37-47); Hemoglobin 10.9 g/dL (12.0-16.0)
[2019-11-21] MEDS: LEVOTHYROXINE SODIUM 75 MCG TABLET PO SCH (06:35)
[2019-11-21] MEDS: PRENATAL VITAMIN 1 TAB PO SCH (07:55)
[2019-11-21] MEDS: FERROUS SULFATE 325 MG TAB PO SCH (07:55)
[2019-11-21] MEDS: SIMETHICONE 80 MG CHEW PO PRN (07:55)
[2019-11-21] MEDS: DOCUSATE SODIUM 100 MG CAP PO SCH (07:55)
--- NOTE | 2019-11-21 08:07 | Obstetrical Progress Note ---
Date of Service November 21, 2019 Assessment & Plan (1) Breech presentation: s/p , recovering normally. May want to go home today POD#2, will consider and let us know. Instructions reviewed in case. Subjective Ambulation: ambulating normally Voiding: no voiding problems Passing Gas:: Yes Diet Tolerance:: regular diet Lochia:: Small Feeding Type:: breast feeding Physical Exam Constitutional WD/WN, vitals as above Eyes PERRL, conjunctivae normal, anicteric sclerae Neck normal visual inspection Respiratory normal respiratory effort and able to speak in complete sentences; no r espiratory distress and no labored breathing Cardiovascular Rate/Rhythm: regular rate and regular rhythm Extremities: no edema Chest (Breasts) Chest: normal inspection of chest Gastrointestinal (Abdomen) Inspection/Auscultation: abdomen normal to inspection Soft, postgravid Psychiatric A+Ox3, euthymic affect Genitourinary OB Exam Abdomen: + fundal height Fundus: + firm and + relation to umbilicus (fundus just below umbilicus); not tender Results & Data Vital Signs (Past 12 Hours) Vital Signs Temp Pulse Resp BP Pulse Ox 11/20/19 23:45 98.1 F 80 18 108/72 98
--- NOTE | 2019-11-22 16:56 | Discharge Summary (DS) ---
HOSPITAL COURSE: The patient was admitted for a scheduled primary low transverse section secondary to breech presentation. The procedure was performed without complication or issues. The patient remained in house for recovery until postoperative day #2 and was discharged home in stable condition. The patient received both written and verbal discharge instructions and was discharged home in stable condition.
== END 2019-11-21 15:00 | disposition home or self-care (01) | DRG 788 ==
LOC: 4S1 05:32 → EDSTATUS 07:30 → 4S2 11:00

== ENCOUNTER 2022-04-16 13:17 | Inpatient (IN) ==
[2022-04-16] MEDS ORDERED: LIDOCAINE 1% LOCAL 20 ML VIAL INFIL PRN (13:42)
[2022-04-16] MEDS ORDERED: OXYTOCIN 30 UNITS/500 ML BAG IV PRN ×2 (13:42→19:22)
--- NOTE | 2022-04-16 13:48 | History & Physical Report ---
Date of Service April 16, 2022 Assessment & Plan (1) Previous delivery affecting , antepartum: Plan: IUP at 40 weeks with SPROM and early labor prior for breech presentation wishes to attempt epidural analgesia when requested T&S History of Present Illness Primary Care Provider: Michelle Harris DO Patient is a 26 yo EDC 04/15/22 who presents with irregular contractions for several days and then SPROM for meconium stained fluid at 1230 today. contractions are still mild and irregular. complicated by prior section for breech presentation. patient is hoping for . GBS- negative Allergies Allergy/AdvReac Type Severity Reaction Status Date / Time apple Allergy Severe Swelling Verified 04/15/22 12:06 of Lip/Tongue/Throat Bactrim Allergy Severe HIVES Verified 10/19/17 19:37 Cipro Allergy Severe HIVES Verified 10/19/17 19:37 ciprofloxacin Allergy Intermediate HIVES Verified 04/15/22 12:06 kiwi Allergy Intermediate ITCHY Verified 04/15/22 12:06 THROAT, WATERY EYES sulfamethoxazole Allergy Intermediate HIVES Verified 04/15/22 12:06 trimethoprim Allergy Intermediate HIVES Verified 04/15/22 12:06 Home Medications Medication Instructions Recorded Confirmed Type vitamin-ferrous fumarate 1 tab PO DAILY 08/15/19 04/15/22 History 28 mg iron-folic acid 800 mcg tablet ferrous sulfate 324 mg (65 mg 324 mg PO QAM 11/11/19 04/15/22 History iron) tablet,delayed release triamcinolone acetonide 0.5 % 1 applic topical BID PRN skin 08/21/20 04/15/22 Rx topical cream irritation #60 grams ondansetron HCl [Zofran] PO PRN 09/05/21 04/15/22 History levothyroxine 100 mcg tablet 100 mcg PO DAILY #90 tabs 12/04/21 04/15/22 Rx Breast Pump #1 ea 01/15/22 04/15/22 Rx Patient History Medical History Anxiety delivery delivered Eczema History of chicken pox Hypothyroidism Iron deficiency Miscarriage Need for rhogam due to Rh negative mother Seasonal allergies Shingles Temporomandibular joint disorder Surgical History History of incision and drainage History of wisdom tooth extraction S/P section Family History Father Diabetes Hypertension Hyperlipidemia Left nephrolithiasis Grandfather (Maternal) Cardiac disorder Grandmother (Maternal) Gallbladder disease Aunt Gallbladder disease Mother Multiple myeloma Denies family history of Colon cancer Ovarian cancer Breast cancer Social History Smoking Status: Never smoker Second Hand Exposure: No; Hx Alcohol Use: No Hx Substance Use: No Preferred Language: Yakut Communication Ability: Effective Visual Impairment: No Limitations Hearing Ability: Normal Progress Clerk Required: No Beliefs That Will Affect Care: None marital status: marital status details: spouse: Victor M Finley (26) [phone] Current Living Situation: Spouse Current Living Situation Comment: lives with spouse, son, cat-spouse changing litter current occupational status: employed 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 How many Children do You have: 1 Other Information That Helps Us Care for You: No Feels Safe at Home: Yes Safety Concerns: Feels Safe At This Time Childhood Exposure to Second-Hand Smoke: No Diet Comment: regular caffeine: Yes (chocalate) during the past year weight has: decreased > 10 lbs Dental Care, Regularly: Yes Physical Activity Frequency: 5-6 Times per Week Seatbelt Use: always Sunscreen Use: Yes Assistive Devices: Glasses Review of Systems All systems reviewed & are unremarkable except as noted in HPI & below Physical Exam Constitutional: WD/WN, vitals as above Psychiatric: A+Ox3, euthymic affect Genitourinary: OB Exam Abdomen: + vertex, + estimated weight (7-8 pounds) and + irregular contractions Manual OB Exam: + cervical dilation 1 cm, + cervical effacement 80%, + station -2 and + amniotic fluid meconium (thin) OB Exam Monitor Tracing: + external FHT monitor used, + external uterine monitor used, + category I and + normal FHT variability Code Status & VTE Plan VTE Prophylaxis Plan VTE Prophylaxis will be ordered: No Coding Level of Care Code None Diagnoses Previous delivery affecting , antepartum O34.219
[2022-04-16 14:31] LABS: Hematocrit (blood only) 39.3 % (34.1-44.9); Hemoglobin 13.4 g/dl (12.0-16.0); Mean Corpuscular Hemoglobin 32.8 pg (25.0-34.0); Mean Corpuscular Hgb Conc 34.1 g/dL (32.0-36.0); Mean Corpuscular Volume 96.1 fL (80.0-100.0); Mean Platelet Volume 9.4 fL (9.4-12.3); Platelet Count 248 K/uL (130-400); RDW Coefficient of Variation 13.3 % (11.5-14.5); Red Blood Count 4.09 M/uL (3.93-5.22); White Blood Count 9.41 K/ul (4.8-10.8)
[2022-04-16] MEDS ORDERED: SODIUM CHLORIDE 0.9% 250 ML IV PRN (14:56)
--- NOTE | 2022-04-16 19:31 | Obstetrical Progress Note ---
Date of Service April 16, 2022 Assessment & Plan (1) Previous delivery affecting , antepartum: Admission and Anticipated Discharge Date Admission Date: April 16, 2022 Subjective contractions getting more uncomfortable - about every 3-5 minutes but mild FHR- Cat 1 cervix is essentially unchanged from admission discussed options at this time, would really like to which is her first priority. will start pitocin augmentation and epidural when she gets more uncomfortable will place IUPC when able- cervix still too posterior and not dilated enough to do so now Review of Systems Review of Systems: All systems reviewed & are unremarkable except as noted in HPI & below Results & Data ([facility]) Vital Signs (Past 12 Hours) Vital Signs Temp Pulse Resp BP 04/16/22 18:59 95 H 131/75 04/16/22 16:30 20 04/16/22 16:30 97.7 F 20 04/16/22 15:46 97.9 F 75 20 119/71 PG Care Time/CCT Total # of Minutes Spent Total Time Spent with Patient: Total time spent is greater than 50% in coordination of care (as documented) at patient's floor/unit and/or counseling patient: Coding Level of Care Code None Diagnoses Previous delivery affecting , antepartum O34.219
[2022-04-16] MEDS: LACTATED RINGER'S 1,000 ML IV PRN ×2 (19:50→20:47)
[2022-04-16] MEDS ORDERED: SODIUM CHLORIDE 0.9% INJ 10 ML VIAL ONE (19:55)
[2022-04-16] MEDS ORDERED: BUPIVACAINE 0.25% 30 ML VIAL ONE (19:55)
[2022-04-16] MEDS ORDERED: fentaNYL citrate 100 MCG/2 ML VIAL ONE (19:55)
[2022-04-16] MEDS ORDERED: ePHEDrine sulfate 50 MG/ML AMP ONE (19:55)
[2022-04-16] MEDS ORDERED: fentaNYL 2MCG/ML ROPIVACAINE 1.25MG/ML 100 ML BAG EPI ONE (19:56)
[2022-04-16] MEDS ORDERED: LIDOCAINE 2%/EPINEPHRINE 1:200,000 20 ML SDV ONE (19:56)
--- NOTE | 2022-04-16 20:18 | Anesthesiology Consultation ---
Date of Service April 16, 2022 Assessment & Plan Chart Review Chart Review: Acceptable Risk for Labor Epidural Consults Requested none ASA ASA2 Proposed Anesthesia Anesthesia Type: Labor Epidural Risk / Benefits Reviewed With: PT / POA / Parent / Guardian, Accepts Plan and Informed Consent Obtained History Height/Weight Height: 5 ft 1 in Weight: 86.183 kg Allergies Allergy/AdvReac Type Severity Reaction Status Date / Time apple Allergy Severe Swelling Verified 04/15/22 12:06 of Lip/Tongue/Throat Bactrim Allergy Severe HIVES Verified 10/19/17 19:37 Cipro Allergy Severe HIVES Verified 10/19/17 19:37 ciprofloxacin Allergy Intermediate HIVES Verified 04/15/22 12:06 kiwi Allergy Intermediate ITCHY Verified 04/15/22 12:06 THROAT, WATERY EYES sulfamethoxazole Allergy Intermediate HIVES Verified 04/15/22 12:06 trimethoprim Allergy Intermediate HIVES Verified 04/15/22 12:06 Medications Home Medications Medication Instructions Recorded Confirmed Last Taken vitamin-ferrous fumarate 1 tab PO DAILY 08/15/19 04/16/22 04/15/22 08:00 28 mg iron-folic acid 800 mcg tablet ferrous sulfate 324 mg (65 mg 324 mg PO QAM 11/11/19 04/16/22 04/15/22 08:00 iron) tablet,delayed release triamcinolone acetonide 0.5 % 1 applic topical BID PRN skin 08/21/20 04/16/22 04/15/22 08:00 topical cream irritation #60 grams levothyroxine 100 mcg tablet 100 mcg PO DAILY #90 tabs 12/04/21 04/16/22 04/16/22 08:00 Breast Pump #1 ea 01/15/22 04/15/22 Unknown Active Medications Generic Name Dose Route Start Last Admin Trade Name Freq PRN Reason Stop Dose Admin Lactated Ringer's 1,000 mls @ 125 mls/hr 04/16/22 13:42 04/16/22 19:50 Lr IV 04/18/22 13:41 999 mls/hr .Q8H PRN Administration L&D Protocol Protocol Past Medical History Medical History Anxiety delivery delivered 11/19/19 Eczema History of chicken pox Hypothyroidism Iron deficiency Miscarriage Need for rhogam due to Rh negative mother Seasonal allergies Shingles Temporomandibular joint disorder Exercise / Class Metabolic Activity II 4-5 Yardwork/Stairs/Walk up hill Past Family History Family History Father Diabetes Hypertension Hyperlipidemia Left nephrolithiasis Grandfather (Maternal) Cardiac disorder Grandmother (Maternal) Gallbladder disease Aunt Gallbladder disease Mother Multiple myeloma Denies family history of Colon cancer Ovarian cancer Breast cancer Past Surgical History Surgical History History of incision and drainage INCISION AND DRAINAGE OF PILONIDAL CYST;X3 History of wisdom tooth extraction S/P section Past Anesthesia History No Hx of Anesthesia Complications and No Family Hx of Anesthesia Complications History of PONV No Hx of PONV and No Hx of Motion Sickness Social History Smoking Status: Never smoker Hx Alcohol Use: No Hx Substance Use: No substance use type: does not use Physical Exam Vital Signs Last Vital Signs Temp 98.2 F 04/16/22 19:07 Pulse 89 04/16/22 20:13 Resp 20 04/16/22 19:07 BP 131/75 04/16/22 18:59 Pulse Ox 99 04/16/22 20:13 ENMT Mouth: no dentition abnormality Thyromental Distance: > or= 3.5 Finger Breadths Mallampati Class: II Neck normal visual inspection Respiratory normal respiratory effort Auscultation: lungs clear to auscultation bilaterally Cardiovascular Rate/Rhythm: regular rate and regular rhythm Testing Laboratory Results 04/16/22 14:11 Blood Type O Negative 04/16/22 14:11 Antibody Screen NEGATIVE 04/16/22 14:11
[2022-04-16] MEDS ORDERED: ePHEDrine sulfate 50 MG/ML AMP IV PRN (20:39)
[2022-04-16] MEDS ORDERED: NALOXONE HCL 1 MG in SODIUM CHLORIDE 0.9% 1000ML 1,000 ML IV PRN (20:39)
[2022-04-16] MEDS ORDERED: NALOXONE HCL 0.4 MG/1 ML VIAL/CARP IV PRN (20:39)
[2022-04-16] MEDS ORDERED: ONDANSETRON INJ 2 MG/ML 2 ML VIAL IV PRN (20:39)
[2022-04-16] MEDS ORDERED: diphenhydrAMINE 50 MG/ML VIAL IV PRN (20:39)
[2022-04-16] MEDS ORDERED: fentaNYL 2MCG/ML ROPIVACAINE 1.25MG/ML 100 ML BAG EPI PRN (20:39)
[2022-04-16] MEDS ORDERED: NALBUPHINE HCL INJ 10 MG/ML AMP IV PRN (20:39)
--- NOTE | 2022-04-16 21:21 | Labor Progress Brief Note ---
Date of Service April 16, 2022 Subjective patient now comfortable with epidural analgesia cervix 1+/100/-1 FHR - Cat 1 with rare mild variables AROM attempted for possible forewater but no appreciable increase in fluid noted IUPC placed without difficulty ctns q 3-4 mins but mild- will begin pit augmentation Review of Systems All systems reviewed & are unremarkable except as noted in HPI & below Assessment & Plan Admission and Anticipated Discharge Date Admission Date: April 16, 2022 Results & Data ([facility]) Vital Signs (Past 12 Hours) Vital Signs Temp Pulse Resp BP Pulse Ox 04/16/22 21:13 83 98 04/16/22 21:08 86 98 04/16/22 21:03 79 100 04/16/22 21:01 80 115/62 04/16/22 20:58 87 99 04/16/22 20:55 86 112/60 04/16/22 20:53 85 99 04/16/22 20:51 88 110/56 L 04/16/22 20:48 90 113/59 L 98 04/16/22 20:45 88 112/60 04/16/22 20:43 92 H 105/57 L 98 04/16/22 20:41 88 107/58 L 04/16/22 20:39 87 109/58 L 04/16/22 20:38 86 98 04/16/22 20:37 85 112/56 L 04/16/22 20:33 78 100 04/16/22 20:28 84 99 04/16/22 20:23 91 H 100 04/16/22 20:18 101 H 100 04/16/22 20:13 89 99 04/16/22 20:08 87 98 04/16/22 19:07 20 04/16/22 19:07 98.2 F 20 04/16/22 18:59 95 H 131/75 04/16/22 16:30 20 04/16/22 16:30 97.7 F 20 04/16/22 15:46 97.9 F 75 20 119/71 Coding Level of Care Code None
[2022-04-16] MEDS ORDERED: NURSING L&D Epidural Breakthrough Pain Update ONE (22:06)
[2022-04-17] MEDS ORDERED: DIPHTHERIA/TETANUS/PERTUSSIS 0.5 ML SYR/VIAL IM ONE (03:26)
[2022-04-17] MEDS ORDERED: bisacodyL 10 MG SUPP PR PRN (03:26)
[2022-04-17] MEDS ORDERED: BENZOCAINE 20% AER SPR 82.5 GM CAN EXT PRN (03:26)
[2022-04-17] MEDS ORDERED: oxyCODONE/ACETAMINOPHEN 5mg/325mg TAB PO PRN (03:26)
[2022-04-17] MEDS ORDERED: OXYTOCIN 30 UNITS/500 ML BAG IV PRN (03:26)
[2022-04-17] MEDS ORDERED: HYDROCORTISONE ACETATE 25 MG SUPP PR PRN (03:26)
--- NOTE | 2022-04-17 03:52 | Delivery Summary ---
Vaginal Delivery Summary Date of Service April 17, 2022 Vaginal Delivery Summary and 2nd Degree LAC Patient is a 2 para 1-0-0-1 female who presents at 40 weeks with spontaneous rupture of membranes for thin meconium stained fluid and early labor. Her was complicated by a prior section for breech presentation. She desired a trial of labor. She had minimal cervical change number operator 7 hours and after an IUPC was placed, she had augmentation of her labor w ith Pitocin. She received epidural analgesia which was effective. She progressed to complete and pushed effectively over intact perineum for delivery of a viable male infant. After the head was delivered there was a tight nuchal cord which was clamped and cut prior to delivering the rest of the which happened easily. The was placed on mother's abdomen for further attention and drying. He was vigorous and moving all 4 limbs. The placenta was expressed intact with a three-vessel cord. A second-degree perineal laceration was repaired with 3-0 chromic in the usual fashion. Estimated blood loss was 300 cc. bleeding was controlled with dilute Pitocin and fundal massage. Mother and were doing well after delivery. [facility] [place] Delivery Charge Delivery Type Details: and 2nd Degree LAC
[2022-04-17] MEDS: LACTATED RINGER'S 1,000 ML IV PRN (04:45)
[2022-04-17] MEDS: LEVOTHYROXINE SODIUM 100 MCG TABLET PO SCH (06:18)
[2022-04-17] MEDS: PRENATAL VITAMIN 1 TAB PO SCH (07:24)
[2022-04-17] MEDS: DOCUSATE SODIUM 100 MG CAP PO SCH ×2 (07:24→21:12)
--- NOTE | 2022-04-17 07:43 | Anesthesia Procedure Note ---
Date of Service April 17, 2022 Anesthesia Post Epidural Note Vital Signs Vital Signs: Temp Pulse Resp BP Pulse Ox O2 Del Method 36.7 C 100 H 18 100/55 L 91 04/17/22 07:15 04/17/22 07:15 04/17/22 07:15 04/17/22 07:15 04/17/22 03:40 04/16/22 19:10 Pain Intensity Left Hip: Pain Intensity: 0 Notes Mental Status: alert / awake / arousable Nausea / Vomiting: adequately controlled Pain: adequately controlled Airway Patency, RR, SpO2: stable & adequate BP & HR: stable & adequate Hydration State: stable & adequate Neuraxial Anesthesia: was administered and sensory block is resolving Anesthetic Complications: no major complications apparent and Pt Satisfied with anesthetic care Epidural: Removed without complications and With tip intact
[2022-04-17] MEDS: IBUPROFEN 600 MG TAB PO PRN ×3 (09:21→21:11)
[2022-04-17] MEDS ORDERED: SIMETHICONE 80 MG CHEW PO PRN (10:35)
[2022-04-17] MEDS: ACETAMINOPHEN 325 MG TAB PO PRN (23:33)
--- NOTE | 2022-04-18 05:42 | Obstetrical Progress Note ---
Date of Service <Linda Olivier DO - Last Filed: 04/18/22 07:07> April 18, 2022 Assessment & Plan <Linda Olivier DO - Last Filed: 04/18/22 07:07> (1) Previous delivery affecting , antepartum: PPD 1 s/p . continue OOB, ambulation, diet as tolerated (2) Hypothyroid in , antepartum: Continue 100 mcg levothyroxine <Makenzie Zaragoza, DO - Last Filed: 04/18/22 07:15> (1) Previous delivery affecting , antepartum: (2) Hypothyroid in , antepartum: Subjective <Lindadiego Olivier DO - Last Filed: 04/18/22 07:07> Mary is a 26 y/o female who is now PPD # 1 following spontaneous vaginal delivery at 40 weeks. Reports feeling well overall this morning. Mild abdominal cramping & pain well managed on analgesics. Voiding. Tolerating meals overnight and able to ambulate some.Some persistent lochia with some improvement this morning. Breast feeding. Review of Systems Denies fever, chills, sweats Denies shortness of breath, difficulty breathing, chest pain, palpitations, chest pressure. Denies breast pain. Denies dysuria. Denies headache or changes in vision. Physical Exam <Linda Olivier DO - Last Filed: 04/18/22 07:07> General: Alert, oriented. No acute distress. Cardiac: Regular rate and rhythm, no murmurs/rubs/gallops. Respiratory: Clear to auscultation bilaterally a/p, no wheezes/rales/rhonchi. No increased work of breathing. Symmetrical chest rise. No respiratory distress. Abdomen: Soft, nontender, nondistended. Uterus: Uterine fundus firm, palpable 2 cm below umbilicus. Lower Extremities: No lower extremity edema or swelling. No deep calf pain. Gillian's negative bilaterally. Results & Data ([facility]) <Linda Olivier DO - Last Filed: 04/18/22 07:07> Vital Signs (Past 12 Hours) Vital Signs Temp Pulse Resp BP Pulse Ox O2 Del Method 04/18/22 03:25 36.4 C L 85 18 111/72 98 Room Air 04/17/22 23:00 36.5 C 99 H 16 106/68 99 Room Air 04/17/22 19:40 36.4 C L 95 H 18 119/67 99 Room Air <Makenzie Zaragoza, - Last Filed: 04/18/22 07:15> Co-Signing Physician Notes Resident Physician Supervision Note: I was present with Dr. Olivier during the history and exam. I discussed the case with the resident and agree with the findings and plan as documented in the note. Any exceptions or clarifications are listed here: PPD1 doing well. Would like DC home today. Instructions reviewed. Documented By: Makenzie Zaragoza DO Resident Activity Tracking <Linda Olivier, - Last Filed: 04/18/22 07:07> Resident Involvement: Resident Care Provided Care Provided: OB Delivery (Post )
[2022-04-18] MEDS: IBUPROFEN 600 MG TAB PO PRN ×3 (06:01→16:06)
[2022-04-18] MEDS: LEVOTHYROXINE SODIUM 100 MCG TABLET PO SCH (06:02)
[2022-04-18] MEDS: PRENATAL VITAMIN 1 TAB PO SCH (07:35)
[2022-04-18] MEDS: DOCUSATE SODIUM 100 MG CAP PO SCH (07:35)
[2022-04-18] MEDS: ACETAMINOPHEN 325 MG TAB PO PRN ×2 (07:35→11:42)
[2022-04-18 08:15] LABS: Hematocrit (blood only) 30.6 % (34.1-44.9); Hemoglobin 10.3 g/dl (12.0-16.0); Mean Corpuscular Hemoglobin 32.4 pg (25.0-34.0); Mean Corpuscular Hgb Conc 33.7 g/dL (32.0-36.0); Mean Corpuscular Volume 96.2 fL (80.0-100.0); Mean Platelet Volume 9.8 fL (9.4-12.3); Platelet Count 244 K/uL (130-400); RDW Coefficient of Variation 13.5 % (11.5-14.5); RDW Standard Deviation 47.8 fL (36.4-46.3); Red Blood Count 3.18 M/uL (3.93-5.22); White Blood Count 14.13 K/ul (4.8-10.8)
[2022-04-18] MEDS ORDERED: bisacodyL 5 MG TABEC PO SCH (20:00)
== END 2022-04-18 17:05 | disposition home or self-care (01) | DRG 807 ==
LOC: OPB 13:17 → 4S1 13:19 → 4E2 04-17 09:10
DX: O70.1 Second degree perineal laceration during delivery; Z37.0 Single live birth; Z3A.40 40 weeks gestation of pregnancy; O34.211 Maternal care for low transverse scar from previous cesarean delivery; O69.1XX0 Labor and delivery complicated by cord around neck, with compression, not applicable or unspecified

== ENCOUNTER 2024-05-23 23:40 | Inpatient (IN) ==
[2024-05-24] MEDS ORDERED: OXYTOCIN 30 UNITS/NSS 30 UNITS/500 ML BAG IV PRN (00:58)
[2024-05-24] MEDS ORDERED: LIDOCAINE 1% LOCAL 20 ML VIAL INFIL PRN (00:58)
[2024-05-24] MEDS ORDERED: SODIUM CHLORIDE 0.9% 100 ML IV PRN (01:08)
[2024-05-24] MEDS ORDERED: SODIUM CHLORIDE 0.9% 50 ML IV PRN (01:08)
--- NOTE | 2024-05-24 01:12 | History & Physical Report ---
Date of Service May 24, 2024 Assessment & Plan (1) Previous delivery affecting : Plan: Admit to L&D for labor. Patient has h/o successful , and desires a repeat attempt at . We reviewed consent, including risks of hemorrhage, need for STAT section, potential for uterine rupture, risk of need for hysterectomy, risk of of baby and/or mom. Also reviewed section consent, with standard surgical risks including risk of injury to internal organs. She would like to attempt after our conversation. She is most interested in as few interventions as possible. Is aware of need for intervention in the case of medical emergency. Discussion of anesthesia - she does not want to use an epidural for labor pain control. She is aware of risk of emergent surgery - in the event of a true STAT , might not have the time to be able to perform spinal at that time and may require general anesthesia. Discussed epidural placement but not using this for labor pain, only available in case of emergency. I discussed the above with on-call anesthesiologist (Dr Barber), who will also discuss with patient. History of Present Illness Chief Complaint: contractions Primary Care Provider: Michelle Harris, DO 28yo @ 40 0/7, presented to L&D with painful contractions every few minutes. No leaking fluid, no vaginal bleeding. + movement. complicated by: Hypothyroid *Check TFTs Q4wks Prior first - 2021 - Scheduled IOL for 06/01/24 and did not schedule default CS - BREECH at 34wk, Scan/discuss/poss schedule CSec @ 36wk Rh- Need for Rhogam *Rhogam given 03/04/24 - SP Hep B Non-Immune Allergies Allergy/AdvReac Type Severity Reaction Status Date / Time Bactrim Allergy Severe HIVES Verified 10/19/17 19:37 Cipro Allergy Severe HIVES Verified 10/19/17 19:37 ciprofloxacin Allergy Intermediate HIVES Verified 05/19/24 15:17 sulfamethoxazole Allergy Intermediate HIVES Verified 05/19/24 15:17 trimethoprim Allergy Intermediate HIVES Verified 05/19/24 15:17 Home Medications Medication Instructions Recorded Confirmed Type vitamin-ferrous fumarate 1 tab PO DAILY 08/15/19 05/24/24 History 28 mg iron-folic acid 800 mcg tablet triamcinolone acetonide 0.5 % 1 applic topical BID PRN skin 06/09/23 05/24/24 Rx topical cream irritation #60 grams ferrous sulfate 325 mg (65 mg 325 mg PO DAILY 12/04/23 05/24/24 History iron) tablet (FeroSul) breast pump #1 ea 01/16/24 05/19/24 Rx Breast Pump #1 ea 01/23/24 05/19/24 Rx levothyroxine 112 mcg tablet 112 mcg PO DAILY #90 tabs 03/09/24 05/24/24 Rx Patient History Medical History Shingles History of chicken pox Miscarriage Eczema Iron deficiency Temporomandibular joint disorder Hypothyroidism Seasonal allergies Anxiety Surgical History S/P section History of wisdom tooth extraction History of incision and drainage Family History Father Diabetes Hypertension Hyperlipidemia Left nephrolithiasis Grandfather (Maternal) Cardiac disorder Grandmother (Maternal) Gallbladder disease Aunt Gallbladder disease Mother Multiple myeloma Denies family history of Colon cancer Ovarian cancer Breast cancer Social History Smoking Status: Never smoker Second Hand Exposure: No; Do You Dip or Chew Tobacco: No; Hx Alcohol Use: No Hx Substance Use: No Preferred Language: Slovak Communication Ability: Effective Visual Impairment: No Limitations Hearing Ability: Normal 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 Beliefs That Will Affect Care: None marital status: marital status details: spouse: Victor M Finley (28) [phone] Current Living Situation: Spouse and Family Current Living Situation Comment: spouse and two kids current occupational status: employed 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 How many Children do You have: 2 Other Information That Helps Us Care for You: No Feels Safe at Home: Yes Safety Concerns: Feels Safe At This Time Childhood Exposure to Second-Hand Smoke: No Diet: regular Diet Comment: regular caffeine: No during the past year weight has: decreased > 10 lbs Dental Care, Regularly: Yes Physical Activity Frequency: 5-6 Times per Week Seatbelt Use: always Sunscreen Use: Yes Assistive Devices: None Review of Systems All systems reviewed & are unremarkable except as noted in HPI & below Physical Exam Physical Exam: FHT Cat 1 [place] Q 5 min SVE 4/90/-2 Limited bedside ultrasound: cephalic presentation Constitutional: WD/WN, vitals as above Respiratory: normal respiratory effort, lungs clear to auscultation no respiratory distress Cardiovascular: Rate/Rhythm: regular rate and regular rhythm Gastrointestinal (Abdomen): Inspection/Auscultation: abdomen normal to inspection Percussion/Palpation: abdomen soft; abdomen nontender Gravid. No s/s chorio or abruption. Skin: no rashes, warm and dry Psychiatric: A+Ox3, euthymic affect Results & Data Vital Signs (Past 12 Hours) Vital Signs Temp Pulse Resp BP 05/24/24 00:56 118 H 139/75 05/24/24 00:00 36.6 C 16 Coding Level of Care Code None Diagnoses Previous delivery affecting O34.219
[2024-05-24 01:52] LABS: Hematocrit (blood only) 37.6 % (37.0-47.0); Hemoglobin 12.8 g/dl (12.0-16.0); Mean Corpuscular Hemoglobin 32.7 pg (25.0-34.0); Mean Corpuscular Volume 95.9 fL (80.0-100.0); Mean Platelet Volume 9.2 fL (9.4-12.4); Platelet Count 267 K/uL (130-400); RDW Coefficient of Variation 13.4 % (11.5-14.5); Red Blood Count 3.92 M/uL (4.20-5.40); White Blood Count 13.57 K/ul (4.8-10.8)
--- NOTE | 2024-05-24 02:09 | Communication Note ---
Date of Service: May 24, [address] Zaragoza to speak w pt. Pt admitted at term for . Pt desires "unmedicated" labor and delivery and questioned whether she could have an epidural catheter placed to be utilized only in case c.section becomes necessary. I discussed w pt that emergent c. section is most often done under [place]. Non-emergent c.section is routinely performed using spinal anesthesia. I do not see indication to place epidural catheter given that pt does not want labor analgesia. Pt voiced understanding and agreement with this rationale.
--- NOTE | 2024-05-24 08:21 | Labor Progress Brief Note ---
Date of Service May 24, 2024 Subjective Uncomfortable with contractions - back pain. FHT Cat 1 [place] Q 2-3 SVE 8-9/100/+1 Anticipate . Assessment & Plan Admission and Anticipated Discharge Date Admission Date: May 24, 2024 Results & Data Vital Signs (Past 12 Hours) Vital Signs Temp Pulse Resp BP 05/24/24 07:37 87 103/58 L 05/24/24 07:36 18 05/24/24 07:36 36.5 C 18 05/24/24 05:00 110 H 122/67 05/24/24 04:53 18 05/24/24 04:53 36.7 C 18 05/24/24 00:56 118 H 139/75 05/24/24 00:16 36.6 C 05/24/24 00:00 36.6 C 16 Coding Level of Care Code None
--- NOTE | 2024-05-24 09:11 | Anesthesiology Consultation ---
Date of Service May 24, 2024 Assessment & Plan Chart Review Chart Review: Patient NOT seen in Pre Admission Testing and Acceptable Risk for Labor Epidural Consults Requested none ASA ASA2 Proposed Anesthesia Anesthesia Type: Spinal (labor spinal) Risk / Benefits Reviewed With: PT / POA / Parent / Guardian, Accepts Plan and Informed Consent Obtained History Height/Weight Height: 5 ft 1 in Weight: 90.991 kg Allergies Allergy/AdvReac Type Severity Reaction Status Date / Time Bactrim Allergy Severe HIVES Verified 10/19/17 19:37 Cipro Allergy Severe HIVES Verified 10/19/17 19:37 ciprofloxacin Allergy Intermediate HIVES Verified 05/19/24 15:17 sulfamethoxazole Allergy Intermediate HIVES Verified 05/19/24 15:17 trimethoprim Allergy Intermediate HIVES Verified 05/19/24 15:17 Medications Home Medications Medication Instructions Recorded Confirmed Last Taken vitamin-ferrous fumarate 1 tab PO DAILY 08/15/19 05/24/24 05/23/24 09:00 28 mg iron-folic acid 800 mcg tablet triamcinolone acetonide 0.5 % 1 applic topical BID PRN skin 06/09/23 05/24/24 1 Week Ago topical cream irritation #60 grams ~05/17/24 ferrous sulfate 325 mg (65 mg 325 mg PO DAILY 12/04/23 05/24/24 05/23/24 09:00 iron) tablet (FeroSul) breast pump #1 ea 01/16/24 05/19/24 Unknown Breast Pump #1 ea 01/23/24 05/19/24 Unknown levothyroxine 112 mcg tablet 112 mcg PO DAILY #90 tabs 03/09/24 05/24/24 05/23/24 05:00 Past Medical History Medical History (Updated 05/24/24 @ 01:36 by Makenzie Zaragoza DO) Penicillin allergy Evaluated by compliance attorney, after testing determined not an allergy. Had rash as a baby. Shingles History of chicken pox Miscarriage Iron deficiency Temporomandibular joint disorder Exercise / Class Metabolic Activity II 4-5 Yardwork/Stairs/Walk up hill Past Family History Family History Father Diabetes Hypertension Hyperlipidemia Left nephrolithiasis Grandfather (Maternal) Cardiac disorder Grandmother (Maternal) Gallbladder disease Aunt Gallbladder disease Mother Multiple myeloma Denies family history of Colon cancer Ovarian cancer Breast cancer Past Surgical History Surgical History S/P section History of wisdom tooth extraction History of incision and drainage INCISION AND DRAINAGE OF PILONIDAL CYST;X3 Past Anesthesia History No Hx of Anesthesia Complications and No Family Hx of Anesthesia Complications History of PONV No Hx of PONV and No Hx of Motion Sickness Social History Smoking Status: Never smoker Do You Dip or Chew Tobacco: No Hx Alcohol Use: No Hx Substance Use: No substance use type: does not use Physical Exam Vital Signs Last Vital Signs Temp 36.5 C 05/24/24 07:36 Pulse 92 H 05/24/24 09:10 Resp 18 05/24/24 07:36 BP 108/60 05/24/24 09:10 ENMT Mouth: no dentition abnormality Thyromental Distance: > or= 3.5 Finger Breadths Mallampati Class: II Neck normal visual inspection Respiratory normal respiratory effort Auscultation: lungs clear to auscultation bilaterally Cardiovascular Rate/Rhythm: regular rate and regular rhythm Psychiatric Orientation: alert Testing Laboratory Results 05/24/24 01:37 Blood Type O Negative 05/24/24 01:37 Antibody Screen NEGATIVE 05/24/24 01:37
[2024-05-24] MEDS: OXYTOCIN 30 UNITS/NSS 30 UNITS/500 ML BAG IV PRN (09:46)
[2024-05-24] MEDS ORDERED: ACETAMINOPHEN 325 MG TAB PO PRN (09:59)
[2024-05-24] MEDS ORDERED: bisacodyL 10 MG SUPP PR PRN (09:59)
[2024-05-24] MEDS ORDERED: HYDROCORTISONE ACETATE 25 MG SUPP PR PRN (09:59)
[2024-05-24] MEDS ORDERED: BENZOCAINE 20% SPRY 85 APPLN/85 GM CAN EXT PRN (09:59)
--- NOTE | 2024-05-24 10:01 | Delivery Summary ---
Vaginal Delivery Summary Date of Service May 24, 2024 Vaginal Delivery Summary and 2nd Degree LAC The patient dilated to complete and pushed to deliver a viable male infant Apgars 8 and 9 via over 2nd degree perineal laceration. Nuchal cord x reduced at perineum. Mouth and nose bulb suctioned at perineum. Shoulders and body delivered with ease. was vigorous and crying at . Cord clamped at 30 seconds of life and to maternal abdomen where the cord was then doubly clamped and cut. Placenta delivered spontaneously and intact, three- vessel cord. Hemostasis achieved with dilute pitocin and uterine massage and drainage of the bladder for approximately 50 cc under sterile conditions. Laceration repaired in routine fashion with 3-0 vicryl. Cervix and sulci intact. QBL 502 cc. Mother and baby stable in recovery. [facility] [place] Delivery Type Details: and 2nd Degree LAC
[2024-05-24] MEDS: BUPIVACAINE 0.25% PF 30 ML VIAL ONE (10:50)
[2024-05-24] MEDS: ePHEDrine sulfate 50 MG/ML AMP ONE (10:50)
[2024-05-24] MEDS: fentANYL 2 MCG/ML BUPIVacaine 0.125%-NSS 100ML BAG ONE (10:51)
[2024-05-24] MEDS: SODIUM CHLORIDE 0.9% PF INJ 10 ML VIAL ONE (10:51)
[2024-05-24] MEDS: LIDOCAINE 2%/EPINEPHRINE 1:200,000 20 ML PF ONE (10:51)
[2024-05-24] MEDS: fentaNYL citrate PF 100 MCG/2 ML VIAL ONE (10:51)
[2024-05-24] MEDS: IBUPROFEN 600 MG TAB PO PRN (11:27)
--- NOTE | 2024-05-24 11:27 | Anesthesiology Progress Note ---
Date of Service May 24, 2024 Anesthesia Post Procedure Vital Signs Vital Signs: Temp Pulse Resp BP 05/24/24 11:20 85 105/58 L 05/24/24 11:11 74 99/50 L 05/24/24 11:00 92 H 94/62 L 05/24/24 10:50 89 107/69 05/24/24 10:41 87 106/66 05/24/24 10:21 96 H 183/127 H 05/24/24 10:13 18 05/24/24 10:13 36.6 C 18 05/24/24 10:00 77 86/49 L 05/24/24 09:51 99 H 89/41 L 05/24/24 09:21 88 118/68 05/24/24 09:10 92 H 108/60 05/24/24 09:08 115 H 97/55 L 05/24/24 09:06 96 H 104/55 L 05/24/24 07:37 87 103/58 L 05/24/24 07:36 18 05/24/24 07:36 36.5 C 18 05/24/24 05:00 110 H 122/67 05/24/24 04:53 18 05/24/24 04:53 36.7 C 18 05/24/24 00:56 118 H 139/75 05/24/24 00:16 36.6 C 05/24/24 00:00 36.6 C 16 Transfer of Care Handoff Completed per policy Notes Mental Status: alert / awake / arousable Nausea / Vomiting: adequately controlled Pain: adequately controlled Airway Patency, RR, SpO2: stable & adequate BP & HR: stable & adequate Hydration State: stable & adequate Neuraxial Anesthesia: was administered and sensory block is resolving Anesthetic Complications: no major complications apparent and Pt Satisfied with anesthetic care
[2024-05-24] MEDS: DOCUSATE SODIUM 100 MG CAP PO SCH (22:40)
--- NOTE | 2024-05-25 05:46 | Obstetrical Progress Note ---
Date of Service May 25, 2024 Assessment & Plan (1) Hypothyroid in , antepartum: (2) Previous delivery affecting : (3) Need for rhogam due to Rh negative mother: (4) Encounter for care and examination after delivery: Plan Encourage ambulation Encourage breast feeding Continue levothyroxine 112mcg Pain meds as needed DC home today Admission and Anticipated Discharge Date Admission Date: May 24, 2024 Supervising Physician Co-Signing Physician Notes Patient seen with resident and agree with the above findings and plan. Patient doing well and stable for discharge Subjective Pt is 28 yo post- day 1 s/p at 40w. complicated by hypothyroidism, Rh neg, , and Hep B non-immune. Ambulation:In and out of room Voiding:voiding normally Passing gas: yes BM: no Diet tolerance:regular diet Lochia:bloody, no clots Feeding type: breast Current pain level: 0-1 /10 improved with ibuprofen Resting comfortably this morning in NAD. Denies ADKINS, CP, SOB, N/V/D, LE pain/swelling. Review of Systems Review of Systems: As per HPI Physical Exam Constitutional: WD/WN, vitals as above Respiratory: normal respiratory effort, lungs clear to auscultation Cardiovascular: RRR, no murmur, no edema Gastrointestinal (Abdomen): normal bowel sounds, soft, nontender, no hepatosplenomegaly Uterine fundus firm and at level of umbilicus Neurologic: PERRL, EOMI, accommodation nl, no face palsy, no dysarthria Moving all 4 extremities on command Psychiatric: A+Ox3, euthymic affect Results & Data Vital Signs (Past 12 Hours) Vital Signs Temp Pulse Resp BP O2 Del Method 05/25/24 04:50 36.5 C 79 16 104/67 Room Air 05/25/24 01:27 36.4 C L 90 18 115/63 Room Air 05/24/24 19:50 36.8 C 97 H 18 107/69 Room Air Resident Activity Tracking Resident Involvement: Resident Care Provided Care Provided: Adult Hospital Medicine
[2024-05-25] MEDS: LEVOTHYROXINE SODIUM 112 MCG TABLET PO SCH (08:20)
[2024-05-25] MEDS: PRENATAL VITAMIN 1 TAB PO SCH (08:20)
[2024-05-25] MEDS: FERROUS SULFATE 325 MG TAB PO SCH (08:44)
[2024-05-25] MEDS ORDERED: PRENATAL VIT IRON FUM FOLIC AC PO SCH (09:00)
[2024-05-25] MEDS ORDERED: IRON PO SCH (09:00)
[2024-05-25] MEDS ORDERED: NON-FORMULARY MEDICATION (Breast Pump device) SCH (09:00)
[2024-05-25 09:21] VITALS: RESP 18
[2024-05-25] MEDS: DIPHTHER/TETAN/PERTUS Vaccine (Tdap, Adol/Adult) 0.5mL IM ONE (09:22)
[2024-05-25 15:37] VITALS: BP 120/74; PULSE 88; TEMP 97.9; O2SAT 95
[2024-05-25] MEDS ORDERED: bisacodyL 5 MG TABEC PO SCH (20:00)
== END 2024-05-25 17:20 | disposition home or self-care (01) | DRG 807 ==
LOC: OPB 23:40 → 4S1 23:54 → 4E2 05-24 14:27